=== PATIENT | female | born 1985 | race Caucasian/White ===

== ENCOUNTER 2022-10-15 23:53 | Emergency (ER) | payer BC, MEDICAID ==
[2022-10-16] MEDS ORDERED: Lidocaine/EPINEPHrine/Tetracaine Soln 1 ML TOP ONE (00:14)
[2022-10-16] MEDS ORDERED: Lidocaine 1% 10 ML MDV INJECT ONE (00:14)
== END 2022-10-16 01:30 | disposition home or self-care (01) ==
LOC: JD.ED 23:53
DX: S01.01XA Laceration without foreign body of scalp, initial encounter (principal); J45.909 Unspecified asthma, uncomplicated; E66.9 Obesity, unspecified; Z68.41 Body mass index [BMI] 40.0-44.9, adult; Z86.16 Personal history of COVID-19; Z88.2 Allergy status to sulfonamides; Z79.899 Other long term (current) drug therapy; W01.198A Fall on same level from slipping, tripping and stumbling with subsequent striking against other object, initial encounter; Y92.59 Other trade areas as the place of occurrence of the external cause
CPT/HCPCS: 12002; 70450; 70450-26; 99283; J3490